=== PATIENT | female | born 1995 | race Caucasian/White ===

== ENCOUNTER 2016-05-23 20:08 | Emergency (ER) | payer OTHER ==
[~2016-05-23] VITALS: Ht 180.3 cm; Wt 136.1 kg
[2016-05-23 20:26] LABS: URINE BLOOD 3+ (Negative); URINE COLOR YELLOW; URINE GLUCOSE-RANDOM* NEGATIVE (Negative); URINE KETONES TRACE (Negative); URINE NITRITE POSITIVE (Negative); URINE PROTEIN (DIPSTICK) 3+ (Negative); URINE SPECIFIC GRAVITY >= 1.030 (1.003-1.035); URINE UROBILINOGEN 0.2 E.U./dl (0.2-1.0)
[2016-05-23 20:28] LABS: ICTOTEST (BILI CONFIRMATORY) Negative (Negative); URINE BILIRUBIN NEGATIVE (Negative)
[2016-05-23 20:32] LABS: CASTS None Seen /LPF (None Seen); CRYSTALS None Seen /LPF (None Seen); SQUAMOUS 0-3 Few /LPF (0-3); URINE WBC >25 Many /HPF (0-5)
[2016-05-23 20:40] LABS: ABSOLUTE NEUTROPHILS 8.7 thou/uL (1.4-8.2); BASOPHILS 0.2 % (0.0-2.0); EOSINOPHILS 0.7 % (0.0-3.0); HEMATOCRIT 39.9 % (37.0-47.0); MCH 23.9 pg (26.0-34.0); MCHC 32.5 % (28.0-37.0); MCV 73.6 fL (80.0-100.0); MONOCYTES 8.6 % (1.0-8.0); PLATELET COUNT 182 thou/uL (150-400); POLYS 78.5 % (36.0-66.0); RBC 5.43 mil/uL (4.20-5.00); WBC 11.1 thou/uL (4.0-11.0)
[2016-05-23 20:44] LABS: MANUAL DIFF NO
[2016-05-23 20:54] LABS: CALCIUM 9.3 mg/dL (8.5-10.1); CREATININE 0.7 mg/dL (0.6-1.3); POTASSIUM 3.7 mmol/L (3.5-5.1)
[2016-05-23 20:59] LABS: ANISOCYTOSIS 1+; LARGE PLATELETS FEW
[2016-05-23 21:00] LABS: ALBUMIN 4.3 g/dL (3.4-5.0); TOTAL BILIRUBIN 0.6 mg/dL (<0.1-1.0); TOTAL PROTEIN 7.6 g/dL (6.4-8.2)
[2016-05-23] MEDS ORDERED: PHENAZOPYRIDIN200 M2 PO (21:41)
[2016-05-23] MEDS ORDERED: CIPRO500 MG PO (21:41)
[2016-05-23] MEDS ORDERED: IBUPROFEN 600600 M1 PO (21:41)
[2016-05-23 21:52] VITALS: BP 135/87
== END 2016-05-23 21:55 | disposition home or self-care (01) ==
LOC: ER 20:08
PROVIDERS: Nurse Practitioner Family
DX: N39.0 Urinary tract infection, site not specified (principal); Z98.890 Other specified postprocedural states; Z88.2 Allergy status to sulfonamides